=== PATIENT | male | born 1960 | race Hispanic/Latino ===

== ENCOUNTER 2017-07-22 13:37 | Day surgery (SDC) | payer OTHER ==
[2017-07-22] MEDS ORDERED: Lidocaine 2% Inj (20ml) ONE (14:00)
[2017-07-22] MEDS ORDERED: Verapamil 2 ML ONE (14:00)
[2017-07-22] MEDS ORDERED: Midazolam 2 MG/2 ML VIAL ONE ×3 (14:01→14:49)
[2017-07-22] MEDS ORDERED: Nitroglycerin 50mg in D5W 50 MG/250 ML BOTTLE IV ONE (14:01)
[2017-07-22] MEDS ORDERED: Iodixanol 320 MG/ML 200 ML BOTTLE IV ONE (14:01)
[2017-07-22] MEDS ORDERED: Iodixanol 320 MG/ML 100 ML BOTTLE IV ONE (14:01)
[2017-07-22] MEDS ORDERED: Adenosine 90 mg/30mL IV ONE (14:02)
[2017-07-22] MEDS ORDERED: Heparin25000 units/250ml 1/2NS 25,000 UNITS/250 ML BAG IV ONE (14:58)
[2017-07-22] MEDS ORDERED: Heparin25000 units/250ml 1/2NS 25,000 UNITS/250 ML BAG IV SCH (16:45)
[2017-07-22] MEDS ORDERED: Bacitracin Ointment 30 GM TUBE TOP ONE (18:12)
[2017-07-22] MEDS ORDERED: Bacitracin 500 Units/gm Oint Foilpak UD ONE (18:17)
--- NOTE | 2017-07-22 18:39 | CARDCATH ---
PROCEDURE DATE: 07/22/2017 INDICATIONS: Jose Elias Roman is a pleasant 57-year-old male who was admitted to [facility] with complaints of chest pain and palpitations while he was going home from work in [facility]. Patient was brought to [facility] and was noted to have unstable angina Because of his significant history of prior CAD and stenting x6, he underwent a nuclear stress test, which showed anterior apical defect. He was therefore brought to [facility] for further characterization of coronary anatomy. PROCEDURE PERFORMED: Left heart catheterization with selective left and right coronary angiograms, left ventriculogram, 6-Kenyan left distal radial arterial access, and wrist band for hemostasis. TECHNIQUES OF PROCEDURE: After obtaining informed consent, patient was brought to the cardiac catheterization suite in post-absorptive and non-sedated state. The patient was prepped and draped in the usual sterile fashion. A 2% lidocaine was used for infiltration of anesthesia. Using modified Seldinger technique, a 6-Kenyan sheath was introduced into the left distal radial artery subsequently over a J-wire. JL4 and JR4 diagnostic catheters were used to engage the left and right coronary systems and angiograms were obtained in different orthogonal views. Subsequently, a pigtail catheter was advanced into the LV and LV gram was obtained in the LEMONS view. Hemodynamics were obtained and pullback gradients were noted. HEMODYNAMICS: Left ventricular end-diastolic pressure was in low 30s. EF of 60% to 65%. There was no gradient noted upon the aortic valve pullback. CORONARY ANATOMY: Left main is a large-sized vessel, bifurcates into left anterior descending and left circumflex coronary artery. Left anterior descending artery has proximal 60% to 70% stenosis. There is long diffuse lesions subsequently at bifurcation of the diagonal, has mid 90% stenosis. The vessel continues as medium-sized vessel past the diagonal branch and gives off one more small diagonal vessel. Left circumflex runs in the AV groove, it has proximal stent with 60% to 70% in-stent restenosis, gives off one medium-sized obtuse marginal branch. Right coronary artery has proximal to mid stent with 70% in-stent restenosis. in the distal segment has three tandem focal 90% stenosis and a proximal PDA lesion. IMPRESSION: Severe triple vessel coronary artery disease, normal ejection fraction. RECOMMENDATIONS: Patient is to be kept on IV heparin. Initiate the patient on IV nitro drip. Patient is to be transferred over for evaluation by CT surgery for urgent CABG. Derick Davidson MD MTDD
--- NOTE | 2017-07-22 21:35 | CP.PCM.PN ---
Subjective - Date & Time of Evaluation Date of Evaluation: 07/22/17 Time of Evaluation: 21:33 - Subjective Subjective: s/p LHCx showing triple vessel CAD Objective - Vital Signs/Intake and Output Vital Signs (last 24 hours): Temp Pulse Resp BP Pulse Ox 98.5 F 80 18 144/85 100 07/22/17 21:10 07/22/17 21:10 07/22/17 21:10 07/22/17 21:10 07/22/17 16:54 - Medications Medications: Current Medications Heparin Sodium/Sodium Chloride (Heparin 15018 Units/250ml 1/2 Normal Saline) 25 ,000 units in 250 mls @ 8.012 mls/hr IV .Q24H ISAMAR; 10.39 UNITS/KG/HR PRN Reason: Protocol Last Admin: 07/22/17 16:49 Dose: 10.39 units/kg/hr, 8.012 mls/hr Insulin Human Lispro (Humalog Low) 0 units SC ACHS ISAMAR PRN Reason: Protocol Losartan Potassium (Cozaar) 100 mg PO DAILY [facility] Last Admin: 07/22/17 18:23 Dose: 100 mg - Constitutional Appears: Well - Head Exam Head Exam: ATRAUMATIC, NORMAL INSPECTION, NORMOCEPHALIC - Eye Exam Eye Exam: EOMI, Normal appearance, PERRL Pupil Exam: NORMAL ACCOMODATION, PERRL - ENT Exam ENT Exam: Mucous Membranes Moist, Normal Exam - Neck Exam Neck Exam: Full ROM, Normal Inspection. absent: Lymphadenopathy - Respiratory Exam Respiratory Exam: Clear to Ausculation Bilateral, NORMAL BREATHING PATTERN - Cardiovascular Exam Cardiovascular Exam: REGULAR RHYTHM, +S1, +S2. absent: Murmur - GI/Abdominal Exam GI & Abdominal Exam: Soft, Normal Bowel Sounds. absent: Tenderness - Extremities Exam Extremities Exam: Full ROM, Normal Capillary Refill, Normal Inspection. absent : Joint Swelling, Pedal Edema - Back Exam Back Exam: NORMAL INSPECTION - Neurological Exam Neurological Exam: Alert, Awake, CN II-XII Intact, Normal Gait, Oriented x3 - Psychiatric Exam Psychiatric exam: Normal Affect, Normal Mood - Skin Skin Exam: Dry, Intact, Normal Color, Warm Assessment and Plan (1) Chest pain Assessment & Plan: unstable angina s/p LHCXs showing triple vessel CAD plan for urgent CABG at [facility] cont asa dc brilinta cont bb, statins, arbs Status: Acute (2) HTN (hypertension) Status: Chronic (3) Hx of heart artery stent Status: Chronic (4) Hyperlipidemia Status: Chronic
[2017-07-22] MEDS: Insulin Lispro (humaLOG) LOW Coverage SC SCH (22:50)
[2017-07-23 00:15] VITALS: O2SAT 98
[2017-07-23] MEDS: Insulin Lispro (humaLOG) LOW Coverage SC SCH ×2 (07:30→12:53)
[2017-07-23 12:06] VITALS: BP 148/91; PULSE 75; RESP 19; TEMP 98.7
--- NOTE | 2017-07-23 14:58 | CP.PCM.PN ---
Subjective - Date & Time of Evaluation Date of Evaluation: 07/23/17 Time of Evaluation: 14:55 - Subjective Subjective: Ana Magaña DO, PGY-1: Progress Note for Dr. Davidson Patient seen and examined at bedside with son earle present. Patient reports feeling right substernal discomfort intermittently while being hospitalized. Patient denies worsening of the chest pain with activity (going from the bed to bathroom) or associated dyspnea. Patient denies any bleeding or loss of upper extremity pulses. Patient is to be transferred to [place] for likely CABG. Objective - Vital Signs/Intake and Output Vital Signs (last 24 hours): Temp Pulse Resp BP Pulse Ox 98.7 F 75 19 148/91 H 98 07/23/17 12:00 07/23/17 12:00 07/23/17 12:00 07/23/17 12:00 07/23/17 05:43 Intake and Output: 07/23/17 07/23/17 06:59 18:59 Intake Total 96 Balance 96 - Medications Medications: Current Medications Heparin Sodium/Sodium Chloride (Heparin 87115 Units/250ml 1/2 Normal Saline) 25 ,000 units in 250 mls @ 8.012 mls/hr IV .Q24H ISAMAR; 10.39 UNITS/KG/HR PRN Reason: Protocol Last Admin: 07/22/17 16:49 Dose: 10.39 units/kg/hr, 8.012 mls/hr Insulin Human Lispro (Humalog Low) 0 units SC ACHS ISAMAR PRN Reason: Protocol Last Admin: 07/23/17 12:53 Dose: 2 units Losartan Potassium (Cozaar) 100 mg PO DAILY [facility] Last Admin: 07/23/17 10:08 Dose: 100 mg - Labs Labs: APTT 49.3 Seconds (25.1-36.5) H 07/23/17 05:30 - Constitutional Appears: Non-toxic, No Acute Distress - Head Exam Head Exam: ATRAUMATIC, NORMOCEPHALIC - Eye Exam Eye Exam: EOMI, Normal appearance - ENT Exam ENT Exam: Mucous Membranes Moist, Normal Oropharynx - Neck Exam Neck Exam: Normal Inspection - Respiratory Exam Respiratory Exam: Clear to Ausculation Bilateral. absent: Accessory Muscle Use , Rales - Cardiovascular Exam Cardiovascular Exam: RRR, +S1, +S2 - GI/Abdominal Exam GI & Abdominal Exam: Soft, Normal Bowel Sounds - Extremities Exam Extremities Exam: Normal Inspection. absent: Pedal Edema - Back Exam Back Exam: NORMAL INSPECTION. absent: CVA tenderness (L), CVA tenderness (R) - Neurological Exam Neurological Exam: Alert, Awake, Oriented x3 - Psychiatric Exam Psychiatric exam: Normal Affect, Normal Mood - Skin Skin Exam: Dry, Intact, Normal Color, Warm Assessment and Plan - Assessment and Plan (Free Text) Assessment: 57 year old diabetic, smoker with past medical history of uncontrolled DM II and hypertension who presented to [facility] with chest pain and fluttering sensation who was found to have multivessel coronary artery ( with a HgA1c of 11) disease on left heart catheterization warranting CABG. Patient to be transferred to [facility] on ISS, Aspirin, Toprol XL, Losartan, and heparin drip, and Atorvastatin. Plan: Continue with heparin drip, ARB, B-esteban, Aspirin, and Statin. Patient to be transferred to [facility] for CABG. Patient last took Brillanta on 07/22/17 AM. Three days needed prior to surgery.
[2017-07-23] MEDS ORDERED: Metoprolol Succinate 50 mg XL Tab PO STA (15:15)
[2017-07-24] MEDS ORDERED: Metoprolol Succinate 50 mg XL Tab PO SCH (08:00)
== END 2017-07-23 15:37 | disposition short-term general hospital (02) ==
LOC: CATH 13:37 → 2RNO 15:24 → CATH 07-23 15:37
PROVIDERS: ATTEND Internal Medicine Interventional Cardiology
DX: I25.110 Atherosclerotic heart disease of native coronary artery with unstable angina pectoris (principal); T82.858A Stenosis of other vascular prosthetic devices, implants and grafts, initial encounter; E11.65 Type 2 diabetes mellitus with hyperglycemia; E78.5 Hyperlipidemia, unspecified; I10 Essential (primary) hypertension; Z79.4 Long term (current) use of insulin; Z95.5 Presence of coronary angioplasty implant and graft
CPT/HCPCS: 36415 ×2; 82948 ×2; 85730 ×2; 93458; 99152; C1769; C1894; J0153; J1644 ×3; J2250; J3010; J7030; Q9966; Q9967